=== PATIENT | female | born 2000 | race Caucasian/White ===

== ENCOUNTER 2021-09-04 16:41 | Emergency (ER) | payer MEDICAID, SELFPAY ==
[2021-09-04 16:42] VITALS: BP 102/74; PULSE 85; RESP 18; TEMP 36.5; O2SAT 97; BMI 24.7
--- NOTE | 2021-09-04 17:03 | EDS_ITS ---
HPI HPI - Female History of Present Illness Chief Complaint: Complaint Narrative Narrative: Patient presents with dysuria, frequency and urgency, she also complains of itchy slightly foul-smelling vaginal discharge. No fever or chills, she has slight pelvic pain. No nausea or vomiting. No back pain. No dyspareunia PFSH PFSH Medical History no medical history Home Medications metronidazole 500 mg PO BID #14 tab 09/04/21 [Rx Last Taken Unknown] Allergy/AdvReac Type Severity Reaction Status Date / Time No Known Allergies Allergy Verified 09/04/21 16:44 Social History Smoking Status: Never smoker ROS ROS ED ROS Narrative Past medical history: Reviewed Medications: Reviewed Social history: Noncontributory Review of systems: All systems negative except as indicated General: No fever Eyes: No visual changes ENT: No upper airway congestion, normal voice Neck: No neck pain Cardiovascular: No chest pain Respiratory: No shortness of breath or cough Gastrointestinal: No abdominal pain, nausea vomiting or diarrhea Genitourinary: As in HPI Musculoskeletal: Denies myalgias no difficulty with ambulation Skin: No rash Neurological: No memory loss, confusion or any focal weakness Psych: No recent behavioral changes Hematologic: No easy bleeding or easy bruising EXAM Physical Exam Narrative Exam Narrative: Physical exam General: Well nourished, Well developed, No Acute Distress Head: Normocephalic, Atraumatic Eyes: Conjunctiva not pale ENT: Moist mucous membranes Neck: Supple, Nontender, No lymphadenopathy Cardiovascular: Regular rate, Regular rhythm Respiratory: No distress, CTA bilaterally Abdomen: Soft, Nontender except for slight suprapubic pain, Nondistended : Deferred Back: Nontender, Normal Inspection. Negative for: CVA tenderness Extremities: Nontender, No edema Skin: Normal color, No rash Neurological: Alert, Normal Strength, Normal Sensation Psychological: Normal affect Const Vital Signs: 09/04/21 16:42 09/04/21 19:12 Temperature 97.7 F L Temperature Source Temporal Pulse Rate 85 Respiratory Rate 18 16 Blood Pressure 102/74 Blood Pressure Mean 83 Pulse Ox 97 Oxygen Delivery Method Room Air MDM MDM MDM Narrative Medical decision making narrative: Patient's urinalysis is grossly unremarkable, she appears well based on her symptoms she likely has bacterial vaginosis. I talked to her she does not want treated for GC or chlamydia at this time. She tells me she has no risk for these however I did culture so we will call her if these come back positive. Lab Data Labs: Laboratory Results - last 24 hr 09/04/21 17:16 Urine Color Yellow Urine Clarity Sl. Cloudy Urine pH 8.0 Ur Specific [place] 1.015 Urine Protein 30 H Urine Glucose (UA) Normal Urine Ketones 5 H Urine Occult Blood Negative Urine Nitrite Negative Urine Bilirubin Negative Urine Urobilinogen Normal Ur Leukocyte Esterase 25 H Urine RBC 0 SEEN Urine WBC 0 SEEN Ur Squamous Epith Cells 0-5 SEEN Urine Bacteria 1+ Urine Mucus 0 SEEN Urine Test Negative Radiography Diagnostic Testing: Clinical Impression(s) from Imaging Studies Transvaginal US 09/04/21 17:54 IMPRESSION: 1. Retroverted uterus, endometrium normal at 10 mm. No endometrial masses or fluid collections. 2. Normal appearance of the ovaries, RIGHT ovarian cyst is noted. No solid masses or abnormal blood flow. 3. Small amount of free fluid is present in the pelvis. Electronically Signed: Harpreet Thompson MD at 19:30 EST , Discharge Plan Triage Chief Complaint: Complaint ED Provider: Ki Vanegas Dx/Rx/DC Orders Clinical Impression: Bacterial vaginosis, Dysuria Instructions: Bacterial Vaginosis Prescriptions: New metronidazole 500 mg tablet 500 mg PO BID Qty: 14 RF: 0 Primary Care Provider: Sherly Roman NP Referrals: Sherly Roman NP, [employer] [Primary Care Provider] - 2 Days Disposition Disposition: Home, Self Care
[2021-09-04 17:28] LABS: Mucous, Urine 0 SEEN /hpf (<or=2+); Red Blood Cells-Urine 0 SEEN /hpf (0-5); White Blood Cells 0 SEEN /hpf (0-5)
[2021-09-04 17:30] LABS: Color, Urine Yellow (Yellow); Glucose, Dipstick Normal (Normal); Ketone-Dipstick 5 mg/dl (Negative); Leukocyte Esterase-Dipstick 25 /ul (Negative); Nitrite-Dipstick Negative (Negative); Occult Blood-Urine Negative /ul (Negative); Protein-Dipstick 30 mg/dl (Negative); Specific Gravity, Urine 1.015 (1.002-1.030); Urine Bilirubin Dipstick Negative (Negative); Urine Clarity Sl. Cloudy (Clear); Urine Urobilinogen Normal (Normal)
[2021-09-04 17:40] LABS: Bacteria 1+ /hpf (None Seen); Squamous Epithelial Cells - UA 0-5 SEEN /hpf (5-10)
[2021-09-04 17:42] LABS: Internal QC Validated? YES +Cl - CLEAR BKGD; Pregnancy, Urine Negative Negative
--- NOTE | 2021-09-04 17:54 | US_ITS ---
INDICATION: pelvic pain EXAMINATION: Ultrasound US Transvaginal Non-OB TECHNIQUE: Transvaginal (for optimal evaluation of the adnexa) pelvic ultrasound was performed. Grayscale, spectral waveform, and color flow Doppler evaluation of the adnexa. COMPARISON: None. FINDINGS: UTERUS: Retroverted. The uterus measures 6.3 x 5.1 x 3.9 cm. There is no uterine mass. The endometrial stripe measures 10 mm in AP diameter which is within normal limits. There is hyperechoic appearance to the mucosal surface however no abnormal fluid collections noted. RIGHT OVARY: 3.5 x 2.6 x 1.8 cm. Non-enlarged, normal echogenicity. There is normal arterial inflow and venous outflow present in the right ovary. There is a 1.4 x 1.4 x 1.1 cm cyst in the RIGHT ovary. LEFT OVARY: 2.9 x 2.0 x 1.9 cm. Non-enlarged, normal echogenicity. There is normal arterial inflow and venous outflow present in the left ovary. FREE FLUID: Small amount of free fluid is present in the cul-de-sac. US/Transvaginal Non- IMPRESSION: 1. Retroverted uterus, endometrium normal at 10 mm. No endometrial masses or fluid collections. 2. Normal appearance of the ovaries, RIGHT ovarian cyst is noted. No solid masses or abnormal blood flow. 3. Small amount of free fluid is present in the pelvis. Electronically Signed: Harpreet Thompson MD at 19:30 EST ,
[2021-09-04 19:12] VITALS: RESP 16
[2021-09-04] MEDS: metroNIDAZOLE 500 MG Tablet PO (20:00)
[2021-09-04 20:38] LABS: Chlamydia Trachomatis by PCR Negative (Negative); Neisserai gonorrhoeae by PCR Negative (Negative); Probe Check PASS; Sample Adequacy Control PASS; Specimen Processing Control PASS
== END 2021-09-04 20:02 | disposition home or self-care (01) ==
PROVIDERS: Emergency Provider Emergency Medicine; PCP Nurse Practitioner Primary Care; Visit Provider Emergency Medicine
DX: N76.0 Acute vaginitis (principal); B96.89 Other specified bacterial agents as the cause of diseases classified elsewhere; R30.0 Dysuria
CPT/HCPCS: 76830; 81001; 81025; 87491; 87591; 93976; 99283

== ENCOUNTER 2022-04-16 17:35 | Emergency (ER) | payer OTHER, BC, MEDICAID, SELFPAY ==
[2022-04-16 17:36] VITALS: BP 100/75; PULSE 85; RESP 14; TEMP 36.8; O2SAT 99; BMI 25.2
--- NOTE | 2022-04-16 18:09 | ED.VIS.FEGU ---
HPI <ISMA Meyer - Last Filed: 04/16/22 19:34> HPI - Female History of Present Illness Chief Complaint: Narrative Narrative: Patient is currently 11 weeks . She was walking about 2 miles after work when she developed bilateral lower abdominal cramping. No bleeding. She states pain is actually starting to subside now. She has had an uncomplicated first trimester so far. She states she had a 10-week ultrasound that confirmed IUP. The only medicine she is taking are prenatals and Lexapro. PFSH <ISMA Meyer - Last Filed: 04/16/22 19:34> [facility] Medical History (Updated 04/16/22 @ 19:30 by ISMA Meyer) Seizures Home Medications metronidazole 500 mg tablet 500 mg PO BID #14 tabs 09/04/21 [Rx Last Taken Unknown] cephalexin 500 mg capsule 500 mg PO Q8H 5 days #15 caps 04/16/22 [Rx Last Taken Unknown] escitalopram oxalate 5 mg tablet 5 mg PO DAILY 04/16/22 [History Last Taken Unknown] Allergy/AdvReac Type Severity Reaction Status Date / Time No Known Allergies Allergy Verified 04/16/22 17:36 Social History Smoking Status: Never smoker ROS <ISMA Meyer - Last Filed: 04/16/22 19:34> ROS ED ROS Narrative Constitutional: Negative for fever, chills, malaise. Eyes: Negative for visual change. ENT: Negative for sore throat, ear pain, rhinorrhea. CVS: Negative for palpitations, chest pain, syncope. Respiratory: Negative for shortness of breath, cough, orthopnea. GI: Positive for abdominal pain. Negative for nausea, vomiting, diarrhea, constipation, melena, hematochezia. : Negative for dysuria, hematuria or frequency. Neuro: Negative for headache, motor/sensory dysfunction. Skin: Negative for rash, abscess, or wound. Musc: Negative for joint pain, swelling, trauma. Heme: Negative for easy bruising, bleeding, lymphadenopathy. EXAM <ISMA Meyer - Last Filed: 04/16/22 19:34> Physical Exam Narrative Exam Narrative: CONST: Patient sitting in no acute distress. EYES: Normal inspection. NECK: Normal inspection. RESP: No respiratory distress, CTAB. CVS: Regular rate and rhythm, no murmur, no gallop. ABD: Soft with minimal bilateral lower abdominal tenderness, no guarding or rebound, nondistended. SKIN: Color normal, no rash, warm, dry, intact. EXTREMITIES: Normal appearance, no pedal edema. NEURO: Oriented x4. PSYCH: Normal affect. Const Vital Signs: 04/16/22 17:36 Temperature 98.2 F Temperature Source Temporal Pulse Rate 85 Respiratory Rate 14 Blood Pressure 100/75 Blood Pressure Mean 83 Pulse Ox 99 Oxygen Delivery Method Room Air <Dr. Vern Burns DO - Last Filed: 04/16/22 22:45> Physical Exam Const Vital Signs: 04/16/22 17:36 Temperature 98.2 F Temperature Source Temporal Pulse Rate 85 Respiratory Rate 14 Blood Pressure 100/75 Blood Pressure Mean 83 Pulse Ox 99 Oxygen Delivery Method Room Air MDM <ISMA Meyer - Last Filed: 04/16/22 19:34> [facility] Narrative Medical decision making narrative: Patient had mild bilateral lower abdominal pain after walking 2 miles. She is 11 weeks . She has no trauma no vaginal bleeding or abnormal discharge. Here she appears well and nontoxic. Vital signs are unremarkable. Her abdominal exam is benign and pain is resolved after Tylenol. heart tones were normal on bedside evaluation by the attending. UA had 1+ bacteria so I will treat with Keflex for asymptomatic bacteriuria. Patient advised to increase fluids and follow-up with her CHAIN CARRIER next week. She was discharged in stable condition. Attending note: Patient seen and evaluated with park maintenance technician. I perform my own [id number] evaluation. I agree with the plan of work-up. 11-day gestation followed by [facility], Sherly García. Walking 2 miles today for exercise noted cramping lower abdomen. No urine symptoms no vaginal bleeding no abnormal discharge denies trauma. Denies alcohol or any recreational drug use. Symptoms started on arrival to the ED. No other complaints. Exam abdomen soft nontender status post Tylenol. Bedside ultrasound performed by myself a lot of movement, cannot isolate heart for measurement. Urine is ordered symptoms improving patient more reassured. Plan for outpatient follow-up. Lab Data Labs: Laboratory Results - last 24 hr 04/16/22 18:50 Urine Color Yellow Urine Clarity Clear Urine pH 6.5 Ur Specific [place] 1.010 Urine Protein Negative Urine Glucose (UA) Normal Urine Ketones 50 H Urine Occult Blood Negative Urine Nitrite Negative Urine Bilirubin Negative Urine Urobilinogen Normal Ur Leukocyte Esterase Negative Urine RBC 0 SEEN Urine WBC 0-5 SEEN Ur Squamous Epith Cells 0-5 SEEN Urine Bacteria 1+ Urine Mucus 0 SEEN <Dr. Vern Burns DO - Last Filed: 04/16/22 22:45> MDM MDM Narrative Medical decision making narrative: Attending note: Patient seen and evaluated with park maintenance technician. I perform my own [id number] evaluation. I agree with the plan of work-up. 11-day gestation followed by [facility] OB, Sherly García. Walking 2 miles today for exercise noted cramping lower abdomen. No urine symptoms no vaginal bleeding no abnormal discharge denies trauma. Denies alcohol or any recreational drug use. Symptoms started on arrival to the ED. No other complaints. Exam abdomen soft nontender status post Tylenol. Bedside ultrasound performed by myself a lot of movement, cannot isolate heart for measurement. Urine is ordered symptoms improving patient more reassured. Plan for outpatient follow-up. Lab Data Labs: Laboratory Results - last 24 hr 04/16/22 18:50 Urine Color Yellow Urine Clarity Clear Urine pH 6.5 Ur Specific [place] 1.010 Urine Protein Negative Urine Glucose (UA) Normal Urine Ketones 50 H Urine Occult Blood Negative Urine Nitrite Negative Urine Bilirubin Negative Urine Urobilinogen Normal Ur Leukocyte Esterase Negative Urine RBC 0 SEEN Urine WBC 0-5 SEEN Ur Squamous Epith Cells 0-5 SEEN Urine Bacteria 1+ Urine Mucus 0 SEEN Discharge Plan Triage Chief Complaint: ED Midlevel Provider: Maria Guadalupe De Souza ED Provider: Vern Burns Dx/Rx/DC Orders Clinical Impression: Abdominal pain during , Asymptomatic bacteriuria Instructions: ED Abdominal Pain, Early Prescriptions: New cephalexin 500 mg capsule 500 mg PO Q8H 5 Days Qty: 15 0RF No Action metronidazole 500 mg tablet 500 mg PO BID Qty: 14 0RF escitalopram oxalate 5 mg tablet 5 mg PO DAILY Primary Care Provider: Sherly Roman NP Referrals: Sherly Roman DIGITAL MARKETING STRATEGIST, DIGITAL MARKETING STRATEGIST-C [Primary Care Provider] - Activity Restrictions/Additional Instructions: You had normal heart tones here. Your urine had a small amount of bacteria in we treat this with antibiotics to prevent risk of infection to the fetus. Please take these, drink plenty of fluids, and call your CHAIN CARRIER next week for follow-up. Disposition Disposition: Home, Self Care Discharge Date/Time: 04/16/22 19:38
[2022-04-16] MEDS: Acetaminophen 325 MG Tablet 650 MG PO (18:16)
[2022-04-16 18:57] LABS: Mucous, Urine 0 SEEN /hpf (<or=2+); Red Blood Cells-Urine 0 SEEN /hpf (0-5)
[2022-04-16 19:05] LABS: Color, Urine Yellow (Yellow); Glucose, Dipstick Normal (Normal); Ketone-Dipstick 50 mg/dl (Negative); Leukocyte Esterase-Dipstick Negative /ul (Negative); Nitrite-Dipstick Negative (Negative); Occult Blood-Urine Negative /ul (Negative); Protein-Dipstick Negative (Negative); Urine Bilirubin Dipstick Negative (Negative); Urine Clarity Clear (Clear); Urine Urobilinogen Normal (Normal); Urine pH 6.5 (5.0 - 8.0)
[2022-04-16 19:26] LABS: Bacteria 1+ /hpf (None Seen); Squamous Epithelial Cells - UA 0-5 SEEN /hpf (5-10)
[2022-04-16 19:28] LABS: White Blood Cells 0-5 SEEN /hpf (0-5)
== END 2022-04-16 19:38 | disposition home or self-care (01) ==
PROVIDERS: Physician Assistant; Emergency Provider Emergency Medicine; PCP Nurse Practitioner Primary Care; Visit Provider Emergency Medicine
DX: O26.891 Other specified pregnancy related conditions, first trimester (principal); R82.71 Bacteriuria; Z3A.11 11 weeks gestation of pregnancy; R10.9 Unspecified abdominal pain
CPT/HCPCS: 81001; 99283

== ENCOUNTER 2022-06-11 10:50 | Emergency (ER) | payer OTHER, BC, MEDICAID, SELFPAY ==
[2022-06-11 10:51] VITALS: BP 105/85; PULSE 102; RESP 14; TEMP 36.6; O2SAT 100; BMI 25.9
--- NOTE | 2022-06-11 11:47 | ED.VIS.GI ---
HPI HPI - GI History of Present Illness Chief Complaint: Nausea/Vomiting Narrative Narrative: 22-year-old female presenting with nausea and vomiting since yesterday. She states she is currently not nauseous.. She was diagnosed with COVID yesterday. She states that she vomited some pink looking vomit yesterday. She states she has been eating mostly bread and water. She is able to hold some of this down. She has a picture of it and it does look like vomited bread. She denies abdominal pain. She does have a fever. No urinary symptoms. She states that he did speak with her OB and they changed her appointment, but did not give her anything for nausea. Patient reports that she has some mild rhinorrhea and a mild cough but is not short of breath or have any chest pain. PFSH PFS Medical History Depression Seizures Home Medications escitalopram oxalate 5 mg tablet 5 mg PO DAILY 04/16/22 [History Last Taken Unknown] ondansetron 4 mg disintegrating tablet 4 mg PO Q8H PRN nausea and vomiting #14 tabs 06/11/22 [Rx Last Taken Unknown] [id number] 1 mg tablet 1 tab PO DAILY 06/11/22 [History Last Taken Unknown] Allergy/AdvReac Type Severity Reaction Status Date / Time No Known Allergies Allergy Verified 06/11/22 10:51 Social History Smoking Status: Never smoker ROS ROS ED Constitutional Constitutional ED: Denies chills or fever(s) ENT ENT ED: Denies rhinorrhea or sore throat Cardiovascular Cardiovascular: Denies chest pain or palpitations Respiratory/Chest Respiratory/Chest: Reports cough; Denies dyspnea or dyspnea on exertion Gastrointestinal Gastrointestinal: Reports nausea and vomiting; Denies abdominal pain Genitourinary Genitourinary ED: Denies dysuria or hematuria Musculoskeletal Musculoskeletal: Denies arthralgias or back pain Integumentary Denies abscess or Abrasions Neurologic Neurologic: Denies headache(s) or paresthesias Psychiatric Psychiatric: Denies anxiety or depression Endocrine Endocrinology: Denies polydipsia or polyphagia EXAM Physical Exam Const Vital Signs: 06/11/22 10:51 Temperature 98 F Temperature Source Temporal Pulse Rate 102 H Respiratory Rate 14 Blood Pressure 105/85 H Blood Pressure Mean 91 Pulse Ox 100 Oxygen Delivery Method Room Air Positive well nourished General Appearance ED: NAD; Negative for pallor HEENT Reports moist mucous membranes normocephalic Eyes PERRL and EOMs intact bilaterally Resp normal respiratory effort and clear to auscultation bilaterally Auscultation: Negative for rales, rhonchi or wheezes Cardio regular rate and regular rhythm GI non-tender Neuro CN's II-XII intact bilaterally and moves all extremities Sensorium / Orientation: alert and oriented to person Psych mental status grossly normal Skin no wounds General Skin Exam: Negative for jaundice or pallor MDM MDM MDM Narrative Medical decision making narrative: Patient presenting with nausea and vomiting from yesterday. Today she feels a little bit better. She was given Zofran in the ER. Although she is diagnosed with COVID starting yesterday she does not have any shortness of breath. She is not have any chest pain or abdominal pain. She has a mild cough and rhinorrhea. Urinalysis today negative for infection. No urine ketones noted. I do not believe the patient needs needs a chest x-ray or blood work. Discussed with patient and she agrees. Patient given prescription for Zofran for home. She is to follow-up with OB. Impression: 1. COVID-19 2. Nausea Lab Data Attestation: I reviewed the patient's lab results. Labs: Laboratory Results - last 24 hr 06/11/22 11:56 Urine Color Yellow Urine Clarity Clear Urine pH 6.0 Ur Specific [place] 1.010 Urine Protein Negative Urine Glucose (UA) Normal Urine Ketones Negative Urine Occult Blood Negative Urine Nitrite Negative Urine Bilirubin Negative Urine Urobilinogen Normal Ur Leukocyte Esterase Negative Ur Squamous Epith Cells 0-5 SEEN Urine Bacteria RARE Discharge Plan Triage Chief Complaint: Nausea/Vomiting ED Provider: Xavi Savage Dx/Rx/DC Orders Instructions: Coronavirus Disease 2019 (COVID-19): Caring for Yourself or Others, ED Vomiting (Adult) Prescriptions: New ondansetron 4 mg tablet,disintegrating 4 mg PO Q8H PRN (Reason: nausea and vomiting) Qty: 14 0RF No Action escitalopram oxalate 5 mg tablet 5 mg PO DAILY 1 mg Tablet 1 tab PO DAILY Primary Care Provider: Sherly Roman NP Referrals: Sherly Roman NP, [employer] DRILLING MACHINE OPERATOR-C [Primary Care Provider] - Disposition Disposition: Home, Self Care
[2022-06-11] MEDS: Ondansetron ODT 4 MG Tablet PO (11:54)
[2022-06-11 12:02] LABS: Color, Urine Yellow (Yellow); Glucose, Dipstick Normal (Normal); Ketone-Dipstick Negative (Negative); Leukocyte Esterase-Dipstick Negative /ul (Negative); Mucous, Urine 0 SEEN /hpf (<or=2+); Nitrite-Dipstick Negative (Negative); Occult Blood-Urine Negative /ul (Negative); Protein-Dipstick Negative (Negative); Red Blood Cells-Urine 0 SEEN /hpf (0-5); Urine Bilirubin Dipstick Negative (Negative); Urine Clarity Clear (Clear); Urine Urobilinogen Normal (Normal); White Blood Cells 0 SEEN /hpf (0-5)
[2022-06-11 12:10] LABS: Bacteria RARE /hpf (None Seen); Squamous Epithelial Cells - UA 0-5 SEEN /hpf (5-10)
[2022-06-11 14:25] VITALS: BP 98/68; PULSE 86; RESP 14; O2SAT 100
== END 2022-06-11 14:26 | disposition home or self-care (01) ==
PROVIDERS: Emergency Provider Student in an Organized Health Care Education/Training Program; PCP Nurse Practitioner Primary Care; Visit Provider Student in an Organized Health Care Education/Training Program
DX: U07.1 COVID-19 (principal); R11.2 Nausea with vomiting, unspecified; R50.9 Fever, unspecified
CPT/HCPCS: 81001; 99283

== ENCOUNTER 2022-08-11 13:25 | Outpatient (CLI) | payer OTHER, BC, MEDICAID, SELFPAY ==
[2022-08-11 13:36] VITALS: BMI 29.0
[2022-08-11 13:40] VITALS: BP 112/69; PULSE 94; TEMP 36.8
--- NOTE | 2022-08-11 13:56 | US_ITS ---
STUDY: SECOND AND THIRD TRIMESTER OBSTETRICAL ULTRASOUND - LIMITED REASON FOR EXAM: Female, 22 years old bleeding LMP: 01/25/2022 PRIOR ULTRASOUND: None. TECHNIQUE: Transabdominal and Transvaginal TECHNICAL QUALITY: Adequate. FINDINGS: There is a single intrauterine fetus. The fetus is in a cephalic presentation. There is demonstrated cardiac activity with a heart rate of 140 bpm. There is a normal amniotic fluid volume. The largest amniotic fluid pocket measures 5.1 cm. The amniotic fluid index (PIETER) is 15.3 cm. The placenta is anterior in location and is not low lying. There are Grade 1 placental changes. The cervix measures 3.1 cm in length. BIOMETRY: Age by LMP: 28 weeks, 2 days. MATEUSZ by LMP: 11/01/2022. US/OB Limited (No Biometrics) IMPRESSION: Live intrauterine gestation. Electronically Signed: Joao Carter MD at 15:09 EST ,
[2022-08-11 14:25] LABS: Hematocrit 29.3 % (37-47); Hemoglobin 9.5 g/dL (12.0-15.0); Mean Corp Hgb Conc 32.4 g/dL (32-36); Mean Corpuscular Hgb 27.2 pg (27.0-32.0); Mean Platelet Vol. 10.2 fl (6.2-12.0); Platelet Count 201 K/mm3 (150-450); RBC Distribution Width CV 14.1 % (11.6-14.6); Red Blood Count 3.49 M/mm3 (4.2-5.4); White Blood Count 11.8 K/mm3 (4.4-11.0)
[2022-08-11 14:33] LABS: Partial Thromboplast Time 25.4 Seconds (24.1-36.2)
[2022-08-11 14:34] LABS: Fibrinogen 357 mg/dl (203-444)
--- NOTE | 2022-08-11 15:22 | NURSING ---
pt and fob going straight over to [facility] office for Dr Horowitz to exam her. pt feels comfortable leaving [facility] to go to [facility].
--- NOTE | 2022-08-12 10:24 | OB.TRI.NOTE ---
HPI - General General Date of Admission: 08/11/22 Date of Service: 08/11/22 HPI Narrative MAXINE SANTOS, is a 22 F who presents c/o vaginal bleeding after intercourse PFSH PFSH Medical History Depression Seizures Home Medications escitalopram oxalate 5 mg tablet 5 mg PO DAILY 04/16/22 [History Last Taken 08/11/22 08:00] ondansetron 4 mg disintegrating tablet 4 mg PO Q8H PRN nausea and vomiting #14 tabs 06/11/22 [Rx Last Taken Unknown] [id number] 1 mg tablet 1 tab PO DAILY 06/11/22 [History Last Taken 08/11/22 08:00] Allergy/AdvReac Type Severity Reaction Status Date / Time No Known Allergies Allergy Verified 08/11/22 14:21 Social History Smoking Status: Never smoker NST FHR Rate Baby A Baseline: normal Variability:: Moderate Accelerations:: 10 x 10 Decelerations:: None NST Reactive:: Appropriate for gestational age FHR Category:: Category I Uterine Activity:: no regular ctxs Assessment & Plan (1) 28 weeks gestation of : PLAN: Ultrasound and labs are sharing. Patient was discharged to my office for an in office visit. Of note in the office it was determined that the bleeding was coming from the hymenal ring and not from the cervix or uterus. Patient was discharged home from my office with routine follow-up. Blood type is AB+. (2) Vaginal bleeding during :
== END 2022-08-11 15:24 | disposition home or self-care (01) ==
LOC: WPOUT 13:31 → WP 13:31
PROVIDERS: PCP Nurse Practitioner Primary Care; Referring Provider Obstetrics & Gynecology; Visit Provider Obstetrics & Gynecology
DX: O46.93 Antepartum hemorrhage, unspecified, third trimester (principal); O99.343 Other mental disorders complicating pregnancy, third trimester; F32.9 Major depressive disorder, single episode, unspecified; Z3A.28 28 weeks gestation of pregnancy
CPT/HCPCS: 36415; 59025; 59050; 76815; 85027; 85384; 85610; 85730; 99221; G0378

== ENCOUNTER 2022-10-11 16:40 | Outpatient (CLI) | payer OTHER, BC, MEDICAID, SELFPAY ==
[2022-10-11 16:46] VITALS: BP 109/70; PULSE 111
[2022-10-11 16:47] VITALS: TEMP 36.8
[2022-10-11 16:54] VITALS: BMI 30.2
[2022-10-11] MEDS: DiphenhydrAMINE 50 MG/ML Syringe 25 MG IV (18:06)
[2022-10-11 18:41] VITALS: BP 118/72; PULSE 83; TEMP 36.9
--- NOTE | 2022-10-15 10:02 | OB.TRI.NOTE ---
HPI - General General Date of Admission: 10/11/22 Date of Service: 10/11/22 HPI Narrative MAXINE SANTOS, is a 22 F who presents Maternal Data Information Final MATEUSZ: 11/01/22 Gestational age: 374 0/7 PFSH PFSH Medical History Depression Seizures Home Medications escitalopram oxalate 5 mg tablet 5 mg PO DAILY 04/16/22 [History Last Taken 10/10/22] ondansetron 4 mg disintegrating tablet 4 mg PO Q8H PRN nausea and vomiting #14 tabs 06/11/22 [Rx Last Taken Unknown] [id number] 1 mg tablet 1 tab PO DAILY 06/11/22 [History Last Taken 10/11/22] Allergy/AdvReac Type Severity Reaction Status Date / Time No Known Allergies Allergy Verified 08/11/22 14:21 Social History Smoking Status: Never smoker NST FHR Rate Baby A Baseline: 120 Variability:: Minimal (at times) and Moderate Accelerations:: 15 x 15 Decelerations:: None NST Reactive:: Yes FHR Category:: Category I Uterine Activity:: irreg ctxs Assessment & Plan (1) 37 weeks gestation of : PLAN: Decreased movement. Nonstress test is reactive. Patient felt movement. [place] parous patient at 37 weeks gestation. Discharged home with routine follow-up and instructions. Return as needed.
== END 2022-10-11 18:30 | disposition home or self-care (01) ==
LOC: WPOUT 16:42 → WP 16:42
PROVIDERS: PCP Nurse Practitioner Primary Care; Referring Provider Advanced Practice Midwife; Visit Provider Advanced Practice Midwife
DX: O36.8130 Decreased fetal movements, third trimester, not applicable or unspecified (principal); Z3A.37 37 weeks gestation of pregnancy
CPT/HCPCS: 96365; 96375; 59025; 59050; 86850; 86900; 86901; J1756

== ENCOUNTER → 2022-10-19 | Outpatient (CLI) | payer OTHER, BC, MEDICAID, SELFPAY ==
[2022-10-19] MEDS: 0.9% NaCl Peripheral Flush Adult/Peds IV (13:11)
[2022-10-19] MEDS: 0.9% NaCl IVPB Med Flush (250 mL) 15 ML IV (13:11)
[2022-10-19 13:15] VITALS: BP 103/71; PULSE 87; RESP 14; TEMP 36.1; O2SAT 96; BMI 29.2
[2022-10-19 14:17] VITALS: BP 105/66; PULSE 82; RESP 16
== END | disposition home or self-care (01) ==
PROVIDERS: PCP Nurse Practitioner Primary Care; Referring Provider Advanced Practice Midwife; Visit Provider Advanced Practice Midwife
DX: O99.013 Anemia complicating pregnancy, third trimester (principal); D50.9 Iron deficiency anemia, unspecified; O99.613 Diseases of the digestive system complicating pregnancy, third trimester; K90.9 Intestinal malabsorption, unspecified; Z3A.37 37 weeks gestation of pregnancy
CPT/HCPCS: 96365; J1756; J7050; A4216

== ENCOUNTER 2022-10-20 22:35 | Outpatient (CLI) | payer OTHER, BC, MEDICAID, SELFPAY ==
[2022-10-20 22:58] VITALS: O2SAT 99
[2022-10-20 22:59] VITALS: BP 108/75; PULSE 85
[2022-10-20 23:18] VITALS: BMI 31.8
--- NOTE | 2022-10-21 06:29 | OB.TRI.NOTE ---
HPI - General HPI Narrative MAXINE SANTOS, is a 22 F at 38.2 weeks who presents to triage with contractions. She had intercourse earlier this evening and begin cramping. She denies any loss of fluid or vaginal bleeding. Positive movement. Maternal Data Information MATEUSZ Calculator Estimated Delivery Date Method Current WG Current Estimate 11/01/22 Manual 38w 3d PFSH PFS Medical History Depression Seizures Home Medications escitalopram oxalate 5 mg tablet 5 mg PO DAILY 04/16/22 [History Last Taken 10/20/22 08:00] Allergy/AdvReac Type Severity Reaction Status Date / Time No Known Allergies Allergy Verified 10/20/22 23:19 Social History Smoking Status: Never smoker ROS Eyes Eyes: Denies blurry vision Cardiovascular Cardiovascular: Reports none; Denies chest pain at rest, chest pain with activity or dizziness Respiratory/Chest Respiratory/Chest: Denies cough or dyspnea Gastrointestinal Gastrointestinal: Reports none and other; Denies diarrhea or vomiting Genitourinary Genitourinary: Denies dysuria Musculoskeletal Musculoskeletal: Reports none Integumentary Integumentary: Reports none; Denies rash Neurologic Neurologic: Denies dizziness, headache(s) or other visual disturbances Psychiatric Psychiatric: Reports none Physical Exam Const alert and no apparent distress General Appearance: cooperative Orientation / Consciousness: awake Exam Limitations: no limitations HEENT normocephalic Eyes General Eye: normal appearance of both eyes Neck full ROM Chest inspection of chest normal Resp normal respiratory effort and normal air movement Effort and Inspection: symmetric chest movement Auscultation: clear to auscultation bilaterally Cardio regular rate GI soft to palpation, non-tender and non-distended Inspection: and other Back/Spine normal ROM Extremity full ROM, normal capillary refill and no calf tenderness Skin no rashes or lesions noted Neuro oriented x3 and CN's II-XII intact bilaterally Psych mental status grossly normal NST FHR Rate Baby A Baseline: 120 Variability:: Moderate Accelerations:: 15 x 15 Decelerations:: None NST Reactive:: Yes FHR Category:: Category I Uterine Activity:: irregular Assessment & Plan (1) 38 weeks gestation of : (2) Uterine contractions: PLAN: Plan NST reactive CE- 1.5/60/-3- unchanged D/C home with follow up in office patient agrees with plan of care
== END 2022-10-21 02:00 | disposition home or self-care (01) ==
LOC: WPOUT 22:42 → WP 22:43
PROVIDERS: PCP Nurse Practitioner Primary Care; Visit Provider Advanced Practice Midwife
DX: O47.1 False labor at or after 37 completed weeks of gestation (principal); Z3A.38 38 weeks gestation of pregnancy
CPT/HCPCS: 59025; 59050; 99221; G0378

== ENCOUNTER → 2022-10-22 | Outpatient (CLI) | payer OTHER, BC, MEDICAID, SELFPAY ==
[2022-10-22 09:20] VITALS: BP 105/82; PULSE 83; RESP 16; TEMP 35.9; O2SAT 96; BMI 32.1
[2022-10-22] MEDS: 0.9% NaCl IVPB Med Flush (250 mL) 15 ML IV (09:28)
[2022-10-22] MEDS: 0.9% NaCl Peripheral Flush Adult/Peds IV (09:28)
[2022-10-22 10:25] VITALS: BP 97/67; PULSE 80; RESP 16; O2SAT 96
== END | disposition home or self-care (01) ==
PROVIDERS: PCP Nurse Practitioner Primary Care; Referring Provider Advanced Practice Midwife; Visit Provider Advanced Practice Midwife
DX: O99.013 Anemia complicating pregnancy, third trimester (principal); D50.9 Iron deficiency anemia, unspecified; O99.613 Diseases of the digestive system complicating pregnancy, third trimester; K90.9 Intestinal malabsorption, unspecified; Z3A.37 37 weeks gestation of pregnancy
CPT/HCPCS: 96365; J1756; J7050; A4216

== ENCOUNTER 2022-10-23 18:30 | Outpatient (CLI) | payer OTHER, BC, MEDICAID, SELFPAY ==
[2022-10-23 18:54] VITALS: BMI 32.5
[2022-10-23 19:18] VITALS: BP 107/70; PULSE 90; TEMP 36.4
[2022-10-23 19:30] LABS: ROM Internal Control Test YES-OK TO RESULT pt. (Internal QC)
[2022-10-23 19:31] LABS: ROM Patient Test Negative (Negative)
--- NOTE | 2022-10-26 12:08 | OB.TRI.NOTE ---
HPI - General General Date of Service: 10/23/22 HPI Narrative MAXINE SANTOS, is a 22 F who presents for possible LOF. Maternal Data Information MATEUSZ Calculator Estimated Delivery Date Method Current WG Current Estimate 11/01/22 Manual 39w 1d Final MATEUSZ: 11/01/22 Gestational age: 38&5 PFSH PFSH Medical History Depression Seizures Home Medications escitalopram oxalate 5 mg tablet 5 mg PO DAILY seizures 04/16/22 [History Last Taken 10/22/22 06:00] Allergy/AdvReac Type Severity Reaction Status Date / Time No Known Allergies Allergy Verified 10/22/22 09:20 Social History Smoking Status: Never smoker NST FHR Rate Baby A Baseline: 130 Variability:: Moderate Accelerations:: 15 x 15 Decelerations:: None NST Reactive:: Yes Uterine Activity:: Irregular Assessment & Plan (1) False labor: PLAN: Plan reactive NST
== END 2022-10-23 19:59 | disposition home or self-care (01) ==
LOC: WPOUT 18:42 → WP 18:42
PROVIDERS: PCP Nurse Practitioner Primary Care; Visit Provider Obstetrics & Gynecology
DX: O47.9 False labor, unspecified (principal); Z3A.00 Weeks of gestation of pregnancy not specified
CPT/HCPCS: 59025; 59050; 84112; 99221; G0378

== ENCOUNTER 2022-10-28 07:49 | Outpatient (CLI) | payer OTHER, BC, MEDICAID, SELFPAY ==
[2022-10-28 08:04] VITALS: BP 106/67; PULSE 85; RESP 16; TEMP 36.7; O2SAT 99; BMI 32.1
[2022-10-28] MEDS: 0.9% NaCl IVPB Med Flush (250 mL) 15 ML IV (08:23)
[2022-10-28 09:18] VITALS: BP 107/63; PULSE 77; TEMP 36.6
== END 2022-10-28 07:50 | disposition home or self-care (01) ==
PROVIDERS: PCP Nurse Practitioner Primary Care; Referring Provider Advanced Practice Midwife; Visit Provider Advanced Practice Midwife
DX: O99.013 Anemia complicating pregnancy, third trimester (principal); D50.9 Iron deficiency anemia, unspecified; O99.613 Diseases of the digestive system complicating pregnancy, third trimester; K90.9 Intestinal malabsorption, unspecified; Z3A.37 37 weeks gestation of pregnancy
CPT/HCPCS: 96365; J1756; J7050; A4216

== ENCOUNTER 2022-10-29 06:55 | Inpatient (IN) | payer OTHER, BC, MEDICAID, SELFPAY ==
[2022-10-29] VITALS (52 sets, daily range): BP systolic 63–118; BP diastolic 36–76; PULSE 74–115; TEMP 36.1–37.3; O2SAT 96–100; BMI 32.1
[2022-10-29] MEDS: Lactated Ringers 1,000 ML 50 ML IV (07:34)
[2022-10-29] MEDS: Oxytocin 15 Units/NS 250ml 15 UNITS/250 ML IV.SOLN 2 UNITS IV (07:52)
[2022-10-29 07:56] LABS: Absolute Lymphocyte Count 2.08 X10^3/uL (0.83-4.51); Absolute Neutrophil Count 6.1 X10^3/uL (2.0-7.7); Basophil# 0.03 X10^3/uL; Basophil% 0.3 % (0-1); Eosinophil# 0.08 X10^3/uL; Eosinophils% 0.9 % (0-5); Hematocrit 33.3 % (37-47); Hemoglobin 10.3 g/dL (12.0-15.0); Lymphocyte # 2.08 X10^3/ul (0.83-4.51); Lymphocyte % 22.8 % (19-41); Mean Corp Hgb Conc 30.9 g/dL (32-36); Mean Corpuscular Hgb 25.5 pg (27.0-32.0); Mean Corpuscular Volume 82.4 fL (81-99); Mean Platelet Vol. 10.4 fl (6.2-12.0); Monocyte# 0.63 X10^3/uL; Monocyte% 6.9 % (0-10); NRBC Flagged by Analyzer 0.4 % (0-5); Neutrophil # 6.09 X10^3/uL (2.7-7.7); Neutrophil % 66.8 % (47-70); POSITIVE MORPHOLOGY YES; Platelet Count 218 K/mm3 (150-450); RBC Distribution Width CV 21.3 % (11.6-14.6); RBC Distribution Width SD 61.1 fl (35.1-43.9); Red Blood Count 4.04 M/mm3 (4.2-5.4); White Blood Count 9.1 K/mm3 (4.4-11.0)
[2022-10-29 08:01] LABS: Differential Indicated SCAN CRITERIA MET
[2022-10-29 08:29] LABS: Syphilis Antibodies Non-reactive
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
[2022-10-29 08:43] LABS: Anisocytosis 1+
[2022-10-29 09:47] LABS: Amphetamine Urine VISTA NEGATIVE (<1000 ng/mL); Barbiturate Urine VISTA NEGATIVE (< 200 ng/mL); Benzodiazepine Urine VISTA NEGATIVE (< 200 ng/mL); Cocaine Urine VISTA NEGATIVE (< 300 ng/mL); Ecstacy Urine VISTA NEGATIVE (< 500 ng/mL); Methadone Urine VISTA NEGATIVE (< 300 ng/mL); PCP Urine VISTA NEGATIVE (< 25 ng/mL); THC Urine VISTA NEGATIVE (< 50 ng/mL); Vista UDS pH Range 6
[2022-10-29] MEDS: LACTATED RINGERS 500 ML 999 ML IV ×3 (10:30→14:30)
[2022-10-29] MEDS: fentaNYL-bupivacaine (epidural) 100 ML BAG EPIDURAL ×2 (11:28→17:03)
--- NOTE | 2022-10-29 12:17 | PCM.PN.OB ---
Subjective Subjective Comfortable with epidural. Partner at bedside Objective Data Objective Data 5cm/70%/-1. AROM for large amount of clear fluid. Vital Signs: Vital Signs Temp Pulse BP Pulse Ox 98.6 F 90 107/64 97 10/29/22 11:27 10/29/22 12:03 10/29/22 11:52 10/29/22 12:03 Weight: 170 lb Body Mass Index (BMI) 32.1 Intake & Output: Intake and Output for Last 24 Hours 10/27/22 10/28/22 10/29/22 23:59 23:59 23:59 Intake Total 661.70 / 661.70 Balance 661.70 / 661.70 Lab / Micro Data Result Diagrams: 10/29/22 07:45 Labs: Laboratory Results - last 24 hr 10/29/22 07:45: WBC 9.1, RBC 4.04 L, Hgb 10.3 L, Hct 33.3 L, MCV 82.4, MCH 25.5 L, MCHC 30.9 L, RDW Std Deviation 61.1 H, RDW Coeff of Evy 21.3 H, Plt Count 218, MPV 10.4, Immature Gran % (Auto) 2.300 H, Neut % (Auto) 66.8, Lymph % (Auto) 22.8, [place] % (Auto) 6.9, Eos % (Auto) 0.9, Baso % (Auto) 0.3, Absolute Neuts (auto) 6.1, Absolute Lymphs (auto) 2.08, Nucleated RBC % 0.4, Anisocytosis 1+ 10/29/22 07:45: Blood Type AB POSITIVE, Antibody Screen NEGATIVE 10/29/22 07:45: Syphilis Total Ab Non-reactive 10/29/22 09:20: Urine Opiates Screen NEGATIVE, Urine Methadone Screen NEGATIVE, Ur Barbiturates Screen NEGATIVE, Ur Phencyclidine Scrn NEGATIVE, Ur Amphetamines Screen NEGATIVE, MDMA (Ecstasy) Screen NEGATIVE, U Benzodiazepines Scrn NEGATIVE, Urine Cocaine Screen NEGATIVE, U Cannabinoids Screen NEGATIVE, Ur Drug Screen Comment NST FHR Rate Baby A Baseline: 125 Variability:: Moderate Accelerations:: 15 x 15 Decelerations:: None FHR Category:: Category I Uterine Activity:: every 2-3 moderate to strong Assessment & Plan (1) Encounter for induction of labor: PLAN: Plan 1) Comfortable with epidural 2) Continue pitocin per protocol 3) Positional changes 4) AROM 5) updated on patient status.
[2022-10-29] MEDS: Lactated Ringers 1,000 ML 200 ML IV (16:17)
[2022-10-29] MEDS: Ondansetron 4 MG/2 ML Vial IV (17:59)
--- NOTE | 2022-10-29 23:48 | OP.PCM_ITS ---
Assessment & Plan (1) Vaginal delivery: (2) Second degree perineal laceration: Maternal Data Information MATEUSZ Calculator Estimated Delivery Date Method Current WG Current Estimate 11/01/22 Manual 39w 4d Vaginal Delivery Maternal Presentation Maternal Presentation: Elective Induction Type of Induction: Pitocin Operative Information Date of Procedure: 10/29/22 Pre-Operative Diagnosis: Induction of Labor Post-Operative Diagnosis: , 2nd degree laceration Surgery / Procedure Performed: Spontaneous Vaginal Delivery Type of Anesthesia: Epidural Estimated Blood Loss: 500 ml Time of Delivery: 23:13 Findings Description of Procedure: Progressed to complete with urge to push. Epidural for pain management. of viable female infant over 2nd degree perineal laceration. APGARS 8,9 respectively. Infant head delivered with body immediately forthcoming. Placed on maternal abdomen, strong cry. Mouth and nares suctioned for secretions. Pitocin started for active 3rd stage management. Cord doubly clamped and cut by FOB after pulsations ceased, delayed cord clamping. Placenta delivered intact via nicolás, 3 vessel cord intact. Perineum inspected and revealed 2nd degree perineal laceration. Repaired with 3.0 vicryl rapide and epidural analgesia. Fundus firm and hemostasis achieved. EBL 500ml. Mom and baby stable, planning to breastfeed. Taken to infant warmer due to dusky color. Blow by 02 and then CPAP due to decreased sp)2, social problems specialist called to room for evaluation. Sp02 returned to normal and returned to mother skin to skin Family bonding well. Dr. Garcia notified of delivery. Presentation: Vertex and KACEY Amniotic Membrane Rupture Type: Artificial Amniotic Fluid Description: Clear and - (terminal meconium ) Placental Delivery Description: Spontaneous Placenta Disposition: [facility] Cord Vessel Description: 3 Vessels Cord Entanglement: None Infant A Gender: Female (1 minute): 8 (5 minute): 9 Delayed Cord Clamping: Yes Post Vaginal Delivery Medications Given After Delivery: IV Pitocin Episiotomy Description: None Laceration: Perineal Extension/lac and 2nd degree Complication Complications: None
[2022-10-29] MEDS: Oxytocin 15 Units/NS 250ml 15 UNITS/250 ML IV.SOLN 83 UNITS IV (23:55)
[2022-10-30] VITALS (19 sets, daily range): BP systolic 98–118; BP diastolic 55–72; PULSE 80–93; RESP 15–16; TEMP 36.3–37.5; O2SAT 96–100
[2022-10-30] MEDS: Acetaminophen 500 MG Tablet 1000 MG PO ×2 (01:40→15:39)
[2022-10-30] MEDS: 0.9% Saline Lock 10 ML Syringe IV (02:54)
--- NOTE | 2022-10-30 04:45 | PCM.PN.OB ---
Subjective Subjective Doing well per patient and nursing staff. Ambulating and taking PO without difficulty. Voiding and passing flatus. Pain controlled. , services for assistance. Denies headache, visual changes, chest pain, shortness of breath, leg pain or increased bleeding. Lochia normal. Objective Data Objective Data Vital Signs: Vital Signs Temp Pulse BP Pulse Ox 99.5 F H 90 115/65 99 10/30/22 01:21 10/30/22 01:24 10/30/22 01:22 10/30/22 01:24 Weight: 170 lb Body Mass Index (BMI) 32.1 Intake & Output: Intake and Output for Last 24 Hours 10/28/22 10/29/22 10/30/22 23:59 23:59 23:59 Intake Total 3720.01 / 3720.01 247.62 / 247.62 Output Total 600 / 600 500 / 500 Balance 3120.01 / 3120.01 -252.38 / -252.38 Lab / Micro Data Result Diagrams: 10/30/22 11:10 Labs: Laboratory Results - last 24 hr 10/29/22 07:45: WBC 9.1, RBC 4.04 L, Hgb 10.3 L, Hct 33.3 L, MCV 82.4, MCH 25.5 L, MCHC 30.9 L, RDW Std Deviation 61.1 H, RDW Coeff of Evy 21.3 H, Plt Count 218, MPV 10.4, Immature Gran % (Auto) 2.300 H, Neut % (Auto) 66.8, Lymph % (Auto) 22.8, [place] % (Auto) 6.9, Eos % (Auto) 0.9, Baso % (Auto) 0.3, Absolute Neuts (auto) 6.1, Absolute Lymphs (auto) 2.08, Nucleated RBC % 0.4, Anisocytosis 1+ 10/29/22 07:45: Blood Type AB POSITIVE, Antibody Screen NEGATIVE 10/29/22 07:45: Syphilis Total Ab Non-reactive 10/29/22 09:20: Urine Opiates Screen NEGATIVE, Urine Methadone Screen NEGATIVE, Ur Barbiturates Screen NEGATIVE, Ur Phencyclidine Scrn NEGATIVE, Ur Amphetamines Screen NEGATIVE, MDMA (Ecstasy) Screen NEGATIVE, U Benzodiazepines Scrn NEGATIVE, Urine Cocaine Screen NEGATIVE, U Cannabinoids Screen NEGATIVE, Ur Drug Screen Comment ROS Constitutional Constitutional: Reports systems reviewed and no addt'l complaints, except as documented; Denies headache(s) Eyes Eyes: Denies acute decrease in peripheral vision, blurry vision or change in vision ENT HEENT: Reports systems reviewed and no addt'l complaints, except as documented Cardiovascular Cardiovascular: Denies chest pain or dizziness Respiratory/Chest Respiratory/Chest: Denies cough, dyspnea, dyspnea on exertion, shortness of breath at rest or shortness of breath with exertion Gastrointestinal Gastrointestinal: Denies abdominal pain, diarrhea, nausea or vomiting Genitourinary Genitourinary: Denies abdominal discomfort Musculoskeletal Musculoskeletal: Denies limited range of motion Integumentary Integumentary: Reports systems reviewed and no addt'l complaints, except as documented Neurologic Neurologic: Reports systems reviewed and no addt'l complaints, except as documented Psychiatric Psychiatric: Reports systems reviewed and no addt'l complaints, except as documented Endocrine Endocrinology: Reports systems reviewed and no addt'l complaints, except as documented Hematologic/Lymphatic Hematologic/Lymphatic: Reports systems reviewed and no addt'l complaints, except as documented Allergic/Immunologic Allergic/Immunologic: Reports systems reviewed and no addt'l complaints, except as documented Physical Exam Const alert and oriented x3 General Appearance: cooperative Orientation / Consciousness: awake, oriented to person, oriented to place and oriented to time Exam Limitations: no limitations HEENT normocephalic Head and Scalp: normal to inspection, normocephalic and atraumatic Face and Sinus: normal facial exam Eyes General Eye: normal appearance of both eyes Neck full ROM Chest Chest: symmetrical chest wall rise Resp normal respiratory effort and normal air movement Auscultation: clear to auscultation bilaterally Cardio regular rate, regular rhythm, S1 normal heart sound, S2 normal heart sound, no murmurs, no rub, no gallops and no clicks GI normal to inspection, nondistended, normoactive bowel sounds and non-tender appearance of the vagina normal Bladder / Kidney Exam: no CVA tenderness Back/Spine normal ROM Extremity normal to inspection and full ROM Skin no rashes or lesions noted Neuro oriented x3, CN's II-XII intact bilaterally and moves all extremities Sensorium / Orientation: awake, alert and oriented to person Motor Exam: clonus absent Deep Tendon Reflexes: Rt Patellar (L4): 2+ and Lt Patellar (L4): 2+ Assessment & Plan (1) Second degree perineal laceration: (2) Vaginal delivery: PLAN: Plan 1) PPD#1 2) Will get CBC today in the afternoon, asymptomatic 3) services 4) Pain management 5) Planning D/C home tomorrow
[2022-10-30] MEDS: Benzocaine/Lanolin/Aloe Vera 1 SPRAY EACH TOPICAL (08:48)
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
[2022-10-30] MEDS: Escitalopram Oxalate 10 MG Tablet 5 MG PO (10:33)
[2022-10-30 11:47] LABS: Hematocrit 32.5 % (37-47); Hemoglobin 9.8 g/dL (12.0-15.0); Mean Corp Hgb Conc 30.2 g/dL (32-36); Mean Corpuscular Hgb 25.5 pg (27.0-32.0); Mean Corpuscular Volume 84.4 fL (81-99); Mean Platelet Vol. 10.8 fl (6.2-12.0); POSITIVE MORPHOLOGY YES; Platelet Count 201 K/mm3 (150-450); RBC Distribution Width SD 64.2 fl (35.1-43.9); Red Blood Count 3.85 M/mm3 (4.2-5.4)
[2022-10-30 11:49] LABS: Scan Indicated on CBC? Y/N YES- FLAGS NOTED
[2022-10-30 12:43] LABS: Differential Comment SCANNED
[2022-10-31] VITALS (7 sets, daily range): BP systolic 104–115; BP diastolic 59–68; PULSE 80–90; RESP 16–18; TEMP 36.7–37.2; O2SAT 97–100
--- NOTE | 2022-10-31 09:40 | PN.OBGYN_ITS ---
Subjective Subjective Doing well per patient and nursing staff. Ambulating and taking PO without difficulty. Voiding and passing flatus. Pain controlled. , services for assistance. Denies headache, visual changes, chest pain, shortness of breath, leg pain or increased bleeding. Lochia normal. Objective Data Objective Data Vital Signs: Vital Signs Temp Pulse Resp BP Pulse Ox O2 Del Method 98.1 F 83 18 115/62 99 Room Air 10/31/22 08:26 10/31/22 08:26 10/31/22 08:26 10/31/22 08:26 10/31/22 08:26 10/31/22 08:26 Oxygen Delivery Method Room Air Weight: 170 lb Body Mass Index (BMI) 32.1 Intake & Output: Intake and Output for Last 24 Hours 10/29/22 10/30/22 10/31/22 23:59 23:59 23:59 Intake Total 3720.01 / 3720.01 747.62 / 747.62 Output Total 600 / 600 1450 / 1450 Balance 3120.01 / 3120.01 -702.38 / -702.38 Lab / Micro Data Result Diagrams: 10/30/22 11:10 Labs: Laboratory Results - last 24 hr 10/30/22 11:10: WBC 17.0 H, RBC 3.85 L, Hgb 9.8 L, Hct 32.5 L, MCV 84.4, MCH 25.5 L, MCHC 30.2 L, RDW Std Deviation 64.2 H, RDW Coeff of Evy 22.0 H, Plt Count 201, MPV 10.8, Differential Comment SCANNED ROS Constitutional Constitutional: Reports systems reviewed and no addt'l complaints, except as documented; Denies headache(s) Eyes Eyes: Denies acute decrease in peripheral vision, blurry vision or change in vision ENT HEENT: Reports systems reviewed and no addt'l complaints, except as documented Cardiovascular Cardiovascular: Denies chest pain or dizziness Respiratory/Chest Respiratory/Chest: Denies cough, dyspnea, dyspnea on exertion, shortness of glenn ath at rest or shortness of breath with exertion Gastrointestinal Gastrointestinal: Denies abdominal pain, diarrhea, nausea or vomiting Genitourinary Genitourinary: Denies abdominal discomfort Musculoskeletal Musculoskeletal: Denies limited range of motion Integumentary Integumentary: Reports systems reviewed and no addt'l complaints, except as documented Neurologic Neurologic: Reports systems reviewed and no addt'l complaints, except as documented Psychiatric Psychiatric: Reports systems reviewed and no addt'l complaints, except as documented Endocrine Endocrinology: Reports systems reviewed and no addt'l complaints, except as documented Hematologic/Lymphatic Hematologic/Lymphatic: Reports systems reviewed and no addt'l complaints, except as documented Allergic/Immunologic Allergic/Immunologic: Reports systems reviewed and no addt'l complaints, except as documented Physical Exam Const alert and oriented x3 General Appearance: cooperative Orientation / Consciousness: awake, oriented to person, oriented to place and oriented to time Exam Limitations: no limitations HEENT normocephalic Head and Scalp: normal to inspection, normocephalic and atraumatic Face and Sinus: normal facial exam Eyes General Eye: normal appearance of both eyes Neck full ROM Chest Chest: symmetrical chest wall rise Resp normal respiratory effort and normal air movement Auscultation: clear to auscultation bilaterally Cardio regular rate, regular rhythm, S1 normal heart sound, S2 normal heart sound, no murmurs, no rub, no gallops and no clicks GI normal to inspection, nondistended, normoactive bowel sounds and non-tender GI Narrative: fundus firm 2 below U appearance of the vagina normal Bladder / Kidney Exam: no CVA tenderness Back/Spine normal ROM Extremity normal to inspection and full ROM Skin no rashes or lesions noted Neuro oriented x3, CN's II-XII intact bilaterally and moves all extremities Sensorium / Orientation: awake, alert and oriented to person Motor Exam: clonus absent Deep Tendon Reflexes: Rt Patellar (L4): 2+ and Lt Patellar (L4): 2+ Assessment & Plan (1) Second degree perineal laceration: (2) Vaginal delivery: (3) Lactating mother: PLAN: Plan 1) PPD #2 with second degree perineal laceration 2) I&O 3) Vitals stable 4) Pain controlled 5) Declines LARC 6) D/C home 7) Follow up in 2 weeks and 6 weeks
--- NOTE | 2022-10-31 09:43 | PCM.DC.SUM ---
Providers Date of Admission: 10/29/22 Primary Care Physician: Sherly Roman, BRYAN-C Reason For Visit: VAGINAL DELIVERY Diagnosis Discharge Diagnosis (1) Second degree perineal laceration: Status: Acute Code(s): O70.1 - Second degree perineal laceration during delivery (2) Vaginal delivery: Status: Acute Code(s): O80 - Encounter for full-term uncomplicated delivery (3) Lactating mother: Status: Acute Code(s): Z39.1 - Encounter for care and examination of lactating mother Plan 1) PPD #2 with second degree perineal laceration 2) I&O 3) Vitals stable 4) Pain controlled 5) Declines LARC 6) D/C home 7) Follow up in 2 weeks and 6 weeks Medications at Discharge Home Medications escitalopram oxalate 5 mg tablet 5 mg PO DAILY seizures 04/16/22 acetaminophen 500 mg tablet 1,000 mg PO Q6H PRN PRN Pain 1-10 Or Fever #0 tabs 10/31/22 ibuprofen 600 mg tablet 600 mg PO Q6H PRN PRN Pain Score 1-10 #20 tabs 10/31/22 Weight / BMI Weight Weight: 170 lb Body Mass Index (BMI) 32.1 ABG / Lab / Microbiology Data Result Diagrams: 10/30/22 11:10 Laboratory: Laboratory Results - last 24 hr 10/30/22 11:10: WBC 17.0 H, RBC 3.85 L, Hgb 9.8 L, Hct 32.5 L, MCV 84.4, MCH 25.5 L, MCHC 30.2 L, RDW Std Deviation 64.2 H, RDW Coeff of Evy 22.0 H, Plt Count 201, MPV 10.8, Differential Comment SCANNED Meaningful Use Info Meaningful Use Diagnoses (Choose all that apply): None applicable Discharge Plan Admission Admit Date/Time: 10/29/22 06:55 Primary Reason for Your Visit: Vaginal Delivery, Second degree perineal laceration Attending Provider: Sherly Clark Primary Care Provider: Sherly Roman MAINTENANCE WORKER SWIMMING POOL Instructions Patient Instructions: [id number]: Holds, : Latch On Steps, After a Vaginal , Perineum Care After Childbirth Discharge Orders/Prescriptions Prescriptions: New acetaminophen 500 mg Tablet 1,000 mg PO Q6H PRN PRN (Reason: Pain 1-10 Or Fever) Qty: 0 0RF ibuprofen 600 mg Tablet 600 mg PO Q6H PRN PRN (Reason: Pain Score 1-10) Qty: 20 0RF Continued escitalopram oxalate 5 mg tablet 5 mg PO DAILY Referrals / Follow Up: Sherly Roman NP, MAINTENANCE WORKER SWIMMING POOL-C [Primary Care Provider] - Sherly Clark CNM [Med Staff - [facility] Practice Prof] - (Follow up in 2 weeks for virtual visit and 6 weeks in person visit) Disposition Disposition (needs filled in before D/C Order can be placed): Home, Self Care
[2022-10-31] MEDS: Escitalopram Oxalate 10 MG Tablet 5 MG PO (10:08)
== END 2022-10-31 19:00 | disposition home or self-care (01) | DRG 807 ==
PROVIDERS: Admitting Provider Advanced Practice Midwife; PCP Nurse Practitioner Primary Care; Referring Provider Advanced Practice Midwife; Visit Provider Advanced Practice Midwife
DX: O99.344 Other mental disorders complicating childbirth (principal); Z37.0 Single live birth; F32.A Depression, unspecified; F41.9 Anxiety disorder, unspecified; O70.1 Second degree perineal laceration during delivery; Z3A.39 39 weeks gestation of pregnancy; Z79.899 Other long term (current) drug therapy; Z87.891 Personal history of nicotine dependence
CPT/HCPCS: 59025; 59050; 80307; 85025; 85027; 86780; 86850; 86900; 86901; 99221; J7120; A4216; G0378; J2405

== ENCOUNTER 2022-12-10 20:18 | Emergency (ER) | payer OTHER, BC, MEDICAID, SELFPAY ==
[2022-12-10 20:20] VITALS: BP 110/81; PULSE 77; RESP 16; TEMP 37; O2SAT 100
[2022-12-10 21:03] LABS: Absolute Lymphocyte Count 4.04 X10^3/uL (0.83-4.51); Absolute Neutrophil Count 6.5 X10^3/uL (2.0-7.7); Basophil# 0.04 X10^3/uL; Basophil% 0.3 % (0-1); Eosinophil# 0.24 X10^3/uL; Eosinophils% 2.1 % (0-5); Hematocrit 40.5 % (37-47); Hemoglobin 12.6 g/dL (12.0-15.0); Lymphocyte # 4.04 X10^3/ul (0.83-4.51); Lymphocyte % 35.2 % (19-41); Mean Corp Hgb Conc 31.1 g/dL (32-36); Mean Corpuscular Hgb 25.6 pg (27.0-32.0); Mean Corpuscular Volume 82.3 fL (81-99); Mean Platelet Vol. 10.1 fl (6.2-12.0); Monocyte# 0.65 X10^3/uL; Monocyte% 5.7 % (0-10); NRBC Flagged by Analyzer 0 % (0-5); Neutrophil # 6.45 X10^3/uL (2.7-7.7); Neutrophil % 56.3 % (47-70); Platelet Count 240 K/mm3 (150-450); RBC Distribution Width CV 19.9 % (11.6-14.6); RBC Distribution Width SD 58.7 fl (35.1-43.9); Red Blood Count 4.92 M/mm3 (4.2-5.4); White Blood Count 11.5 K/mm3 (4.4-11.0)
[2022-12-10 21:12] LABS: Internal QC Validated? YES +Cl - CLEAR BKGD; Pregnancy, Serum, hCG Quali. NEGATIVE Negative
--- NOTE | 2022-12-10 21:13 | EDS_ITS ---
HPI HPI - Female History of Present Illness Chief Complaint: Vag Bleeding Bleeding Issue: Positive for Vaginal bleeding Onset: Today Context: Sudden Onset Timing: Continuous Current Severity: Similar to period Maximum Severity: Similar to period Associated Symptoms Associated Symptoms: Positive for Frequency Narrative Narrative: Patient presents with vaginal bleeding that began today. Patient states she is approximately 6 weeks . Patient states that her bleeding is similar to menstrual period except that it is thinner and more watery. Patient admits to some urinary frequency. Patient denies any dysuria. Patient denies any abdominal pain or pelvic pain. Patient also complains of a tender bump on her right forearm where she had an IV placed for her delivery. Patient denies any redness or swelling over the area. Patient denies any fevers or chills. Patient denies any discharge or drainage. Patient denies any paresthesias or weakness. PFSH PFSH Medical History Anemia Anxiety Depression Family history of hearing loss at age younger than 7 years Seizures Trauma Home Medications escitalopram oxalate 5 mg tablet 5 mg PO DAILY seizures 04/16/22 [History Last Taken 10/22/22 06:00] acetaminophen 500 mg tablet 1,000 mg PO Q6H PRN PRN Pain 1-10 Or Fever #0 tabs 10/31/22 [Rx Last Taken Unknown] ibuprofen 600 mg tablet 600 mg PO Q6H PRN PRN Pain Score 1-10 #20 tabs 10/31/22 [Rx Last Taken Unknown] Allergy/AdvReac Type Severity Reaction Status Date / Time No Known Allergies Allergy Verified 12/10/22 20:18 Surgical History no surgical history no surgical history Social History Smoking Status: Former smoker ROS ROS ED Constitutional Constitutional ED: Denies chills or fever(s) Eyes Eyes: Denies blurry vision or change in vision ENT ENT ED: Denies rhinorrhea or sore throat Cardiovascular Cardiovascular: Denies chest pain or palpitations Respiratory/Chest Respiratory/Chest: Denies cough or dyspnea Gastrointestinal Gastrointestinal: Denies nausea or vomiting Genitourinary Genitourinary ED: Reports urinary frequency; Denies dysuria Musculoskeletal Musculoskeletal: Denies back pain or neck pain Integumentary Denies abscess or rash Neurologic Neurologic: Denies headache(s) or weakness Allergic/Immunologic Allergic/Immunologic ED: Denies mouth swelling or urticaria EXAM Physical Exam Const Vital Signs: 12/10/22 20:20 Temperature 98.6 F Temperature Source Temporal Pulse Rate 77 Respiratory Rate 16 Blood Pressure 110/81 H Blood Pressure Mean 90 Pulse Ox 100 Oxygen Delivery Method Room Air Positive well nourished and well developed General Appearance ED: well developed HEENT Reports moist mucous membranes Neck supple and no JVD Resp normal respiratory effort and clear to auscultation bilaterally Cardio regular rate and regular rhythm GI normal to inspection, nondistended, normoactive bowel sounds and non-tender Palpation: soft Extremity normal to inspection Extremity Narrative: There is some mild tenderness over the volar aspect of the left proximal forearm. There is no erythema or warmth. There is some mild ecchymosis. There is full range of motion. There is no edema noted. Strength is 5/5 bilateral in the upper extremities. There are no sensory deficits noted. Radial pulses are equal bilaterally. General Extremety ED: Negative for edema or tenderness General Extremity: Negative for edema Neuro oriented x3, CN's II-XII intact bilaterally and no sensory deficits noted Sensorium / Orientation: alert Motor Exam: strength 5/5 throughout Psych mental status grossly normal Skin no rashes or lesions noted MDM MDM MDM Narrative Medical decision making narrative: Patient was advised that her forearm is most likely from a superficial p hlebitis. Patient was instructed use warm compresses to that area. Differential diagnosis includes vaginal bleeding, anemia, ectopic , and normal menstrual period. CBC will be obtained to assess for anemia and leukocytosis. Basic metabolic profile will be obtained to assess for electrolyte abnormality and renal function. PT with INR and PTT will be obtained to assess for coagulopathy. Serum hCG will be obtained to assess for status. Since it has been 6 weeks since she delivered, I do not believe that her bleeding is from any retained products of conception. Lab Data Attestation: I reviewed the patient's lab results. Lab results narrative: CBC was reviewed. There is a slight leukocytosis of 11.5. Hemoglobin was 12.6 hematocrit was 40.5. Platelets were normal. PT with INR and PTT were within normal limits. Basic metabolic profile was reviewed. BUN was slightly increased at 20. The remainder was essentially within normal limits. Serum hCG was reviewed and was negative. Labs: Laboratory Results - last 24 hr 12/10/22 12/10/22 12/10/22 20:56 20:56 20:56 WBC 11.5 H RBC 4.92 Hgb 12.6 Hct 40.5 MCV 82.3 MCH 25.6 L MCHC 31.1 L RDW Std Deviation 58.7 H RDW Coeff of Evy 19.9 H Plt Count 240 MPV 10.1 Immature Gran % (Auto) 0.400 Neut % (Auto) 56.3 Lymph % (Auto) 35.2 [place] % (Auto) 5.7 Eos % (Auto) 2.1 Baso % (Auto) 0.3 Absolute Neuts (auto) 6.5 Absolute Lymphs (auto) 4.04 Nucleated RBC % 0 PT 13.0 INR 1.0 APTT 27.6 Sodium 143 Potassium 4.0 Chloride 109 H Carbon Dioxide 29.0 Anion Gap 5 BUN 20 H Creatinine 0.77 Est GFR (MDRD) Af Amer 121 Est GFR (MDRD) Non-Af 100 BUN/Creatinine Ratio 25.9 H Glucose 95 Calcium 9.4 Serum , Qual 12/10/22 20:56 WBC RBC Hgb Hct MCV MCH MCHC RDW Std Deviation RDW Coeff of Evy Plt Count MPV Immature Gran % (Auto) Neut % (Auto) Lymph % (Auto) [place] % (Auto) Eos % (Auto) Baso % (Auto) Absolute Neuts (auto) Absolute Lymphs (auto) Nucleated RBC % PT INR APTT Sodium Potassium Chloride Carbon Dioxide Anion Gap BUN Creatinine Est GFR (MDRD) Af Amer Est GFR (MDRD) Non-Af BUN/Creatinine Ratio Glucose Calcium Serum , Qual NEGATIVE Treatment and Re-Evaluation Narrative: Patient was advised of her findings. Patient was advised that this may be a resumption of her normal menstrual period. Patient was instructed to follow-up with her ROD AND TUBE STRAIGHTENER in 5 to 7 days. Patient understood and was agreeable with the plan. All questions were answered. Discharge Plan Triage Chief Complaint: Vag Bleeding ED Provider: Tim Pederson Dx/Rx/DC Orders Clinical Impression: Vaginal bleeding, Lactating mother, Phlebitis of superficial vein Instructions: ED Dysfunctional Uterine Bleeding Prescriptions: No Action escitalopram oxalate 5 mg tablet 5 mg PO DAILY acetaminophen 500 mg Tablet 1,000 mg PO Q6H PRN PRN (Reason: Pain 1-10 Or Fever) Qty: 0 0RF ibuprofen 600 mg Tablet 600 mg PO Q6H PRN PRN (Reason: Pain Score 1-10) Qty: 20 0RF Primary Care Provider: Sherly Roman NP Referrals: Sherly lCark CNM [Med Staff - [facility] Practice Prof] - 3-5 Days Sherly Roman NP, TIGHT BARREL INSPECTOR-C [Primary Care Provider] - 5-7 Days Disposition Disposition: Home, Self Care
[2022-12-10 21:14] LABS: Partial Thromboplast Time 27.6 Seconds (24.1-36.2)
[2022-12-10 21:17] LABS: BUN 20 mg/dL (7-18); BUN/Creat Ratio 25.9 RATIO (10-20); Calcium,Total 9.4 mg/dL (8.5-10.1); Creatinine, Serum 0.77 mg/dL (0.55-1.02); EST Glomerular Filtration Rate 100 mL/min (>60); Est Glom Filt Rate - Afr Amer 121 mL/min (>60); Glucose 95 mg/dL (74-106); Sodium Level 143 mmol/L (136-145)
[2022-12-10 21:18] LABS: Anion Gap 5 (5-15); Chloride 109 mmol/L (98-107)
[2022-12-10 21:31] VITALS: BMI 27.8
== END 2022-12-10 21:32 | disposition home or self-care (01) ==
PROVIDERS: Emergency Provider Emergency Medicine; PCP Nurse Practitioner Primary Care; Visit Provider Emergency Medicine
DX: N93.9 Abnormal uterine and vaginal bleeding, unspecified (principal); Z87.891 Personal history of nicotine dependence; R35.0 Frequency of micturition; I80.8 Phlebitis and thrombophlebitis of other sites
CPT/HCPCS: 80048; 84703; 85025; 85610; 85730; 99283; A4216

== ENCOUNTER 2023-11-19 10:06 | Emergency (ER) | payer MEDICAID, BC, SELFPAY ==
[2023-11-19 10:06] VITALS: BP 141/75; PULSE 103; RESP 18; TEMP 36.6; O2SAT 99
--- NOTE | 2023-11-19 10:38 | US_ITS ---
INDICATION: , bleeding EXAMINATION: Ultrasound US OB Transvaginal TECHNIQUE: Transvaginal (for optimal evaluation of the adnexa) pelvic ultrasound was performed. Grayscale, spectral waveform, and color flow Doppler evaluation of the adnexa. COMPARISON: No relevant prior comparison study available LMP: [October 11, 2023 FINDINGS: UTERUS: 8.6 x 4.5 x 6.3 cm. The endometrial stripe measures 15.7 mm. No gestational sac is visualized. RIGHT OVARY: 3.0 x 1.7 x 2.9 cm. Within normal limits. LEFT OVARY: 2.4 x 1.2 x 2.3 cm. Within normal limits. FREE FLUID: There is minimal free fluid which may be physiologic. US/Transvaginal w/Preg US IMPRESSION: No intrauterine identified. Electronically Signed: Kesha Melendez MD at 11:51 EDT ,
--- NOTE | 2023-11-19 10:39 | ED.VIS.FEGU ---
HPI HPI - Female History of Present Illness Chief Complaint: Vag Bld, Preg Detail of Chief Complaint: Vaginal bleeding with Informant: patient Narrative Narrative: Patient presents to the emergency department with complaint of vaginal bleeding that started this morning. She can planes of pelvic pain. Bleeding like a menstrual period would be. She denies passing clots. Patient thinks she is about 4 weeks . She is . Still nursing 2-year-old. Patient denies recent illness. She denies fevers PFSH PFSH Medical History Anemia Anxiety Depression Family history of hearing loss at age younger than 7 years Seizures Trauma Home Medications ?Medication ?Instructions ?Recorded ?Last Taken ?Type escitalopram oxalate 5 mg tablet 5 mg PO DAILY seizures 04/16/22 10/22/22 06:00 History acetaminophen 500 mg tablet 1,000 mg (2 x 500 mg) PO Q6H PRN 10/31/22 Unknown Rx PRN Pain 1-10 Or Fever #0 tabs ibuprofen 600 mg tablet 600 mg PO Q6H PRN PRN Pain Score 10/31/22 Unknown Rx 1-10 #20 tabs Allergy/AdvReac Type Severity Reaction Status Date / Time No Known Allergies Allergy Verified 11/19/23 10:07 Social History Smoking Status: Never smoker ROS ROS ED ROS Narrative Review of Systems ROS Unobtainable: other Constitutional Constitutional ED: Reports lethargy; Denies chills, fever(s), sweats or weight loss Eyes Eyes: Denies blurry vision, change in vision or diplopia ENT ENT ED: Denies rhinorrhea or sore throat Cardiovascular Cardiovascular: Reports chest pain and racing heartbeat; Denies orthopnea Respiratory/Chest Respiratory/Chest: Reports dyspnea and dyspnea on exertion; Denies cough, orthopnea or sputum Gastrointestinal Gastrointestinal: Denies abdominal pain, diarrhea, nausea or vomiting Genitourinary Genitourinary ED: Reports vaginal bleeding; Denies dysuria, hematuria or urinary frequency Musculoskeletal Musculoskeletal: Denies arthralgias, back pain, myalgias or neck pain Integumentary Denies abscess, Abrasions or rash Neurologic Neurologic: Denies headache(s) or weakness Psychiatric Psychiatric: Denies anxiety, depression or suicidal thoughts Endocrine Endocrinology: Denies polydipsia, polyphagia or polyuria Hematologic/Lymphatic Hematologic/Lymphatic: Denies easy bleeding, easy bruising or lymphadenopathy Allergic/Immunologic Allergic/Immunologic ED: Denies mouth swelling, tongue swelling or urticaria EXAM Physical Exam Const Vital Signs: 11/19/23 10:06 11/19/23 12:06 Temperature 98 F Temperature Source Temporal Pulse Rate 103 H 81 Respiratory Rate 18 16 Blood Pressure 141/75 H 125/83 H Blood Pressure Mean 97 97 Pulse Ox 99 99 Oxygen Delivery Method Room Air Room Air Positive well nourished and well developed General Appearance ED: well developed and NAD HEENT Reports TM's clear and moist mucous membranes normocephalic and atraumatic; Negative for trauma or tenderness Tympanic Membrane ED: Yes TM's clear Eyes PERRL and EOMs intact bilaterally General Eye ED: Negative for pale conjunctiva or scleral icterus Neck no lymphadenopathy, supple and no JVD General: Negative for tenderness Chest Wall inspection of chest normal and palpation of chest normal Chest: Negative for tenderness Resp normal respiratory effort and clear to auscultation bilaterally Effort and Inspection: Negative for respiratory distress or pain with movement Auscultation: Negative for rhonchi, wheezes or diminished lung sounds Cardio regular rate, regular rhythm, S1 normal heart sound, S2 normal heart sound and no murmurs Peripheral Pulses: pulses 2+ throughout GI normal to inspection, nondistended, normoactive bowel sounds, soft to palpation, non-tender, non-distended and no masses Speculum Exam - Vagina: vaginal bleeding Back/Spine no CVA tenderness and no thoracic nor lumbar tenderness Extremity normal to inspection General Extremety ED: Negative for edema General Extremity: Negative for edema Neuro oriented x3, CN's II-XII intact bilaterally, no sensory deficits noted and gait normal Sensorium / Orientation: awake, alert, oriented to person, oriented to place and oriented to time Motor Exam: strength 5/5 throughout and strength abnormal Psych mental status grossly normal Skin no rashes or lesions noted and no wounds MDM MDM MDM Narrative Medical decision making narrative: Patient presents with first trimester bleeding. Think she might be about 4 weeks . She complaining of some lower pelvic pain. IV line established. CBC with differential count of 8.4 with hemoglobin 12.7 platelet count of 283. hCG quant was 664. Urinalysis was positive for 25-50 RBCs and 10-25 WBCs and +2 bacteria. Urine culture was sent. Patient had a pelvic ultrasound that did not show any intrauterine or significant abnormality. She had mild amount of free fluid in the pelvis which could be physiologic. This point we will discuss case with PLANT ENGINEERING MANAGER on-call for her group. Patient will likely require repeat quant in 2 days and close follow-up. Spoke with Sherly Eduardo asked that patient follow-up with their office tomorrow and they will get her set up to have repeat quant and repeat ultrasound. Patient will be discharged home with advised to return if worsening pain persistent heavy bleeding, lightheadedness, or condition should worsen anyway. Lab Data Labs: Laboratory Results - last 24 hr 11/19/23 11/19/23 10:30 11:15 WBC 8.4 RBC 4.76 Hgb 12.7 Hct 38.8 MCV 81.5 MCH 26.7 L MCHC 32.7 RDW Std Deviation 41.9 RDW Coeff of Evy 14.2 Plt Count 283 MPV 10.7 Immature Gran % (Auto) 0.500 Neut % (Auto) 59.6 Lymph % (Auto) 32.3 [place] % (Auto) 4.5 Eos % (Auto) 2.6 Baso % (Auto) 0.5 Absolute Neuts (auto) 5.0 Absolute Lymphs (auto) 2.72 Nucleated RBC % 0 HCG, Quant 664 H Urine Color Yellow Urine Clarity Sl. Cloudy Urine pH 5.0 Ur Specific [place] 1.025 Urine Protein 30 H Urine Glucose (UA) Normal Urine Ketones 5 H Urine Occult Blood 250 H Urine Nitrite Negative Urine Bilirubin Negative Urine Urobilinogen Normal Ur Leukocyte Esterase 100 H Urine RBC 25-50 SEEN Urine WBC 10-25 SEEN Ur Squamous Epith Cells 0-5 SEEN Urine Bacteria 2+ Urine Mucus 2+ Radiography Diagnostic Testing: Clinical Impression(s) from Imaging Studies Obstetrics Ultrasound 11/19/23 10:38 IMPRESSION: No intrauterine identified. Electronically Signed: Kesha Melendez MD at 11:51 EDT , Discharge Plan Triage Chief Complaint: Vag Bld, Preg ED Provider: Ajit Castaneda Dx/Rx/DC Orders Clinical Impression: Threatened in early Instructions: Miscarriage Threatened Prescriptions: No Action escitalopram oxalate 5 mg tablet 5 mg PO DAILY acetaminophen 500 mg Tablet 1,000 mg PO Q6H PRN PRN (Reason: Pain 1-10 Or Fever) Qty: 0 0RF ibuprofen 600 mg Tablet 600 mg PO Q6H PRN PRN (Reason: Pain Score 1-10) Qty: 20 0RF Primary Care Provider: Sherly Roman NP Referrals: Sherly Clark CNM [Med Staff - Adv Practice Prof] - 1 Day Sherly Roman NP, C2 TACTICAL ANALYSIS TECHNICIAN-C [Primary Care Provider] - Activity Restrictions/Additional Instructions: Call the PLANT ENGINEERING MANAGER office tomorrow to have repeat quant level ordered and arrange close follow-up Print Language: Vincentian Disposition Disposition: Home, Self Care
--- NOTE | 2023-11-19 10:40 | ED.RN ---
pt previous bloodwork confirms blood type is AB+, dr liz aware. blood type labs cancelled
[2023-11-19] MEDS: 0.9% Normal Saline (1000mL) 1,000 ML 999 ML IV (10:45)
[2023-11-19 11:10] LABS: hCG Titer Quant., Serum 664 mIU/mL (1-3)
[2023-11-19 11:13] LABS: Absolute Lymphocyte Count 2.72 X10^3/uL (0.83-4.51); Basophil# 0.04 X10^3/uL; Basophil% 0.5 % (0-1); Eosinophil# 0.22 X10^3/uL; Eosinophils% 2.6 % (0-5); Hematocrit 38.8 % (37-47); Hemoglobin 12.7 g/dL (12.0-15.0); Lymphocyte # 2.72 X10^3/ul (0.83-4.51); Lymphocyte % 32.3 % (19-41); Mean Corp Hgb Conc 32.7 g/dL (32-36); Mean Corpuscular Hgb 26.7 pg (27.0-32.0); Mean Corpuscular Volume 81.5 fL (81-99); Mean Platelet Vol. 10.7 fl (6.2-12.0); Monocyte# 0.38 X10^3/uL; Monocyte% 4.5 % (0-10); NRBC Flagged by Analyzer 0 % (0-5); Neutrophil # 5.02 X10^3/uL (2.7-7.7); Neutrophil % 59.6 % (47-70); Platelet Count 283 K/mm3 (150-450); RBC Distribution Width CV 14.2 % (11.6-14.6); RBC Distribution Width SD 41.9 fl (35.1-43.9); Red Blood Count 4.76 M/mm3 (4.2-5.4); White Blood Count 8.4 K/mm3 (4.4-11.0)
[2023-11-19 11:27] LABS: Color, Urine Yellow (Yellow); Glucose, Dipstick Normal (Normal); Ketone-Dipstick 5 mg/dl (Negative); Leukocyte Esterase-Dipstick 100 /ul (Negative); Nitrite-Dipstick Negative (Negative); Occult Blood-Urine 250 /ul (Negative); Protein-Dipstick 30 mg/dl (Negative); Specific Gravity, Urine 1.025 (1.002-1.030); Urine Bilirubin Dipstick Negative (Negative); Urine Clarity Sl. Cloudy (Clear); Urine Urobilinogen Normal (Normal)
[2023-11-19 11:37] LABS: Bacteria 2+ /hpf (None Seen); Mucous, Urine 2+ /hpf (<or=2+); Red Blood Cells-Urine 25-50 SEEN /hpf (0-5); Squamous Epithelial Cells - UA 0-5 SEEN /hpf (5-10); White Blood Cells 10-25 SEEN /hpf (0-5)
[2023-11-19 12:06] VITALS: BP 125/83; PULSE 81; RESP 16; O2SAT 99
[2023-11-19 13:04] VITALS: BP 124/71; PULSE 87; RESP 16; TEMP 36.2; O2SAT 100
== END 2023-11-19 13:08 | disposition home or self-care (01) ==
PROVIDERS: Emergency Provider Emergency Medicine; PCP Nurse Practitioner Primary Care; Visit Provider Emergency Medicine
DX: O20.0 Threatened abortion (principal); Z3A.01 Less than 8 weeks gestation of pregnancy
CPT/HCPCS: 76817; 81001; 84702; 85025; 87086; 87088; 87186; 96360; 96361; 99284; J7030; A4216

== ENCOUNTER 2023-12-21 15:47 | Emergency (ER) | payer BC, MEDICAID, SELFPAY ==
[2023-12-21 15:48] VITALS: BP 114/62; PULSE 90; RESP 17; TEMP 36.4; O2SAT 95
[2023-12-21 15:49] VITALS: BP 114/62; PULSE 90; RESP 17; TEMP 36.4; O2SAT 95
--- NOTE | 2023-12-21 16:10 | ED.RN ---
I will just come back tomorrow and get my shot Pt did not want to wait in ER waiting room, will return tomorrow.
== END 2023-12-21 16:06 | disposition left against medical advice (07) ==
LOC: ED 16:12
PROVIDERS: PCP Nurse Practitioner Primary Care
DX: Z53.21 Procedure and treatment not carried out due to patient leaving prior to being seen by health care provider (principal)
CPT/HCPCS: 99283

== ENCOUNTER 2024-02-22 11:46 | Emergency (ER) | payer BC, MEDICAID, SELFPAY ==
[2024-02-22] VITALS (7 sets, daily range): BP systolic 97–121; BP diastolic 63–102; PULSE 60–71; RESP 12–16; TEMP 36.1–36.6; O2SAT 95–99; BMI 26.4
--- NOTE | 2024-02-22 12:00 | US_ITS ---
STUDY: FIRST TRIMESTER OBSTETRICAL ULTRASOUND REASON FOR EXAM: Female, 23 years old pelvic pain, bleeding -- 8-9 weeks by dates, r/o ectopic LMP: December 22, 2023. TECHNIQUE: Transvaginal TECHNICAL QUALITY: Adequate. PRIOR ULTRASOUND: None. FINDINGS: There is no demonstrated intrauterine gestational sac. There is no demonstrated yolk sac. The yolk sac measures . The placenta is non-visualized. There is no demonstrated embryo ( pole). The uterus measures 9.2 cm x 5.6 cm x 4.8 cm. There is no demonstrated uterine fibroid. The cervix is closed. The endometrial measures 1.1 cm. It is heterogeneous. The right ovary measures 2.1 cm x 1.9 cm by 1.1 cm. There is no right ovarian cyst. There is no visualized right adnexal mass or complex lesion. The left ovary measures 3 cm x 2.9 cm x 1.7 cm. There is no left ovarian cyst. There is no visualized left adnexal mass or complex lesion. There is no fluid in the cul de sac. US/Transvaginal w/Preg US IMPRESSION: No intrauterine gestational sac is seen. The endometrium measures 1.1 cm. Serial beta hCG follow up recommended. Electronically Signed: Joao Carter MD at 14:17 EDT ,
--- NOTE | 2024-02-22 12:02 | ED.VIS.FEGU ---
HPI HPI - Female History of Present Illness Chief Complaint: Vag Bld, Preg Informant: patient Narrative Narrative: TTP one 8 to 9-week gestation by dates presents for vaginal bleeding with clots for last 2 days. She initially saw her OB team when she was 5 weeks , she saw Sherly Moreno, she states she has not followed up since then. She is too early for an ultrasound. She has been on prenatals. Started having bleeding 3 days ago however last 2 days clots. She went through 40 pack of pads in the last 2 days. She went through 3 soaked pads today. Denies lightheaded symptoms. Increasing pelvic cramping. She is not on any blood thinners. She denies sexual intercourse prior to bleeding. She denies trauma. She states she does have pain in her pelvis when she urinates. Denies dysuria. She discussed with nursing line through her OB office, was sent to the ED for evaluation. Prior similar symptoms: No PFSH PFSH Medical History Family history of hearing loss at age younger than 7 years Trauma Anemia Anxiety Depression Seizures Home Medications ?Medication ?Instructions ?Recorded ?Last Taken ?Type escitalopram oxalate 5 mg tablet 5 mg PO DAILY seizures 04/16/22 10/22/22 06:00 History acetaminophen 500 mg tablet 1,000 mg (2 x 500 mg) PO Q6H PRN 10/31/22 Unknown Rx PRN Pain 1-10 Or Fever #0 tabs ibuprofen 600 mg tablet 600 mg PO Q6H PRN PRN Pain Score 10/31/22 Unknown Rx 1-10 #20 tabs nitrofurantoin 100 mg PO Q12 #10 CAPSULES 02/22/24 Unknown Rx monohydrate/macrocrystals 100 mg capsule Allergy/AdvReac Type Severity Reaction Status Date / Time No Known Allergies Allergy Verified 02/22/24 11:46 Family History no significant family his Social History Smoking Status: Never smoker ROS ROS ED Constitutional Constitutional ED: Denies chills, fever(s) or sweats Eyes Eyes: Denies change in vision ENT ENT ED: Denies dysphagia or sore throat Cardiovascular Cardiovascular: Denies chest pain, leg edema, palpitations or racing heartbeat Respiratory/Chest Respiratory/Chest: Denies cough, dyspnea or dyspnea on exertion Gastrointestinal Gastrointestinal: Denies abdominal pain, diarrhea, nausea or vomiting Genitourinary Genitourinary ED: Reports other Details: Vaginal bleeding, pelvic pain ; Denies dysuria, hematuria or urinary frequency Musculoskeletal Musculoskeletal: Denies back pain, extremity pain or neck pain Integumentary Denies rash or wounds Neurologic Neurologic: Denies headache(s), paresthesias or weakness EXAM Physical Exam Const Vital Signs: 02/22/24 11:47 02/22/24 12:46 02/22/24 12:59 Temperature 96.9 F L Temperature Source Temporal Pulse Rate 71 60 60 Respiratory Rate 16 16 16 Blood Pressure 109/81 H 121/102 H 121/102 H Blood Pressure Mean 90 108 108 Pulse Ox 98 99 99 Oxygen Delivery Method Room Air Room Air 02/22/24 13:57 02/22/24 15:00 02/22/24 16:00 Temperature Temperature Source Pulse Rate 63 63 61 Respiratory Rate 16 16 12 Blood Pressure 101/64 112/80 99/69 Blood Pressure Mean 76 90 79 Pulse Ox 99 99 95 Oxygen Delivery Method Room Air Room Air Room Air 02/22/24 16:33 Temperature 98 F Temperature Source Pulse Rate 68 Respiratory Rate 14 Blood Pressure 97/63 Blood Pressure Mean 74 Pulse Ox 98 Oxygen Delivery Method Positive well nourished and well developed General Appearance ED: well developed and NAD HEENT Reports moist mucous membranes normocephalic and atraumatic Eyes EOMs intact bilaterally and conjunctivae normal General Eye ED: Yes normal appearance of both eyes; Negative for pale conjunctiva Neck no lymphadenopathy and supple General: Negative for tenderness Chest Wall Chest: Negative for tenderness Resp normal respiratory effort and normal air movement Effort and Inspection: symmetric chest movement; Negative for respiratory distress Cardio regular rate, regular rhythm and no murmurs Peripheral Pulses: pulses 2+ throughout GI normal to inspection, nondistended, normoactive bowel sounds and non-tender Palpation: Negative for guarding or rebound tenderness present Narrative: Suprapubic tenderness there is no guarding or rebound. Back/Spine no CVA tenderness and no thoracic nor lumbar tenderness Extremity normal to inspection General Extremety ED: Negative for edema or tenderness General Extremity: Negative for edema Neuro oriented x3 and no sensory deficits noted Sensorium / Orientation: awake and alert Skin no rashes or lesions noted and no wounds MDM MDM MDM Narrative Medical decision making narrative: Interventions / MDM: Differential diagnosis: Incomplete miscarriage, threatened miscarriage, ectopic , complete miscarriage, UTI Diagnosis considered but do not suspect: N/A My EKG interpretation: N/A Imaging independently reviewed and interpreted by myself: Transvaginal ultrasound: No intrauterine no ovarian cysts. External documents reviewed: Blood type AB+. Test considered but not ordered:N/A ED course: Increasing vaginal bleeding, pelvic pain with clots. Likely miscarriage however she has not had an official ultrasound for ectopic on the differential. Patient blood type in the system may be positive. Will check H&H, hCG quant levels. Urine. Will establish IV with n.p.o. status. Ultrasound ordered for further evaluation. 1500: Ultrasound was negative for any findings of intrauterine sac or any ovarian cyst. Her hCG was 525. However reviewing records she had hCG of 600, 3 months ago. This would not correlate with her reported 8 to 9 weeks gestation by history. I discussed this with further no significant other she had a miscarriage back in November. He stated she follow-up outpatient had quant levels that went down to 0. This is not in records. She is having increasing cramping no bleeding she is ordered for morphine. Her urine did note nitrites and leukocytes. Will plan treatment with antibiotics. However with 1 lab today at 525, differential would be complete miscarriage versus early bleeding in possible still ectopic with her pain. History more likely with complete miscarriage. I will speak with her OB team for discussion and plan of care. 1610: I spoke with Dr. Garcia, agrees likely complete miscarriage. Discussed possibility of early with vaginal bleeding. She states less than 12 weeks RhoGAM is not being used currently. Discussed her treatment for UTI. Patient will call the office for repeat hCG in 2 days. This was discussed with the patient. Patient will use Tylenol as needed. She is comfortable on reevaluation. Re-evaluation: stable Disposition discussed with patient/family/significant other: Patient and significant other Case discussed with consulting clinician: OB This note was generated with [employer] dictation software. It may contain incorrect words, spelling, and punctuation that were not noted in checking the note before signing. Lab Data Attestation: I reviewed the patient's lab results. Labs: Laboratory Results - last 24 hr 02/22/24 02/22/24 12:10 12:32 Hgb 11.9 L Hct 37.7 HCG, Quant 525 H Urine Color Yellow Urine Clarity Sl. Cloudy Urine pH 6.0 Ur Specific [place] 1.025 Urine Protein 100 H Urine Glucose (UA) Normal Urine Ketones 5 H Urine Occult Blood 250 H Urine Nitrite Positive H Urine Bilirubin Negative Urine Urobilinogen 1 H Ur Leukocyte Esterase 25 H Urine RBC 25-50 SEEN Urine WBC 0-5 SEEN Ur Squamous Epith Cells 0-5 SEEN Urine Bacteria 1+ Urine Mucus 1+ Radiography Diagnostic Testing: Clinical Impression(s) from Imaging Studies Obstetrics Ultrasound 02/22/24 12:00 IMPRESSION: No intrauterine gestational sac is seen. The endometrium measures 1.1 cm. Serial beta hCG follow up recommended. Electronically Signed: Joao Carter MD at 14:17 EDT , Discharge Plan Triage Chief Complaint: Vag Bld, Preg ED Provider: Vern Burns Dx/Rx/DC Orders Clinical Impression: Complete miscarriage, Vaginal bleeding, Pelvic pain, UTI in Instructions: Urinary Tract Infections in Women, Miscarriage Dc Prescriptions: New nitrofurantoin monohyd/m-cryst 100 mg capsule 100 mg PO Q12 Qty: 10 0RF No Action escitalopram oxalate 5 mg tablet 5 mg PO DAILY acetaminophen 500 mg Tablet 1,000 mg PO Q6H PRN PRN (Reason: Pain 1-10 Or Fever) Qty: 0 0RF ibuprofen 600 mg Tablet 600 mg PO Q6H PRN PRN (Reason: Pain Score 1-10) Qty: 20 0RF Stand Alone Forms: ED Work / School Excuse Primary Care Provider: Sherly Roman NP Referrals: Wandy Jimenez MD [Med Staff - Active Staff] - 2 Days Sherly Roman NP, [id number] [Primary Care Provider] - Activity Restrictions/Additional Instructions: Urine hCG is 525 today. With your history likely complete miscarriage however you will need repeat hCG level in [address]iscussed this with Dr. Garcia. Call office so they can order this in 2 days. Use Tylenol as needed. Take antibiotic as prescribed for urinary tract infection. Print Language: Mexican Disposition Disposition: Home, Self Care Discharge Date/Time: 02/22/24 16:38
[2024-02-22 12:26] LABS: Hematocrit 37.7 % (37-47); Hemoglobin 11.9 g/dL (12.0-15.0)
[2024-02-22] MEDS: 0.9% Normal Saline (1000mL) 1,000 ML 150 ML IV (12:29)
[2024-02-22 12:36] LABS: Color, Urine Yellow (Yellow); Glucose, Dipstick Normal (Normal); Ketone-Dipstick 5 mg/dl (Negative); Leukocyte Esterase-Dipstick 25 /ul (Negative); Nitrite-Dipstick Positive (Negative); Occult Blood-Urine 250 /ul (Negative); Protein-Dipstick 100 mg/dl (Negative); Specific Gravity, Urine 1.025 (1.002-1.030); Urine Bilirubin Dipstick Negative (Negative); Urine Clarity Sl. Cloudy (Clear); Urine Urobilinogen 1 mg/dl (Normal)
[2024-02-22 12:41] LABS: hCG Titer Quant., Serum 525 mIU/mL (1-3)
[2024-02-22 12:51] LABS: Bacteria 1+ /hpf (None Seen); Mucous, Urine 1+ /hpf (<or=2+); Red Blood Cells-Urine 25-50 SEEN /hpf (0-5); Squamous Epithelial Cells - UA 0-5 SEEN /hpf (5-10)
[2024-02-22 12:52] LABS: White Blood Cells 0-5 SEEN /hpf (0-5)
[2024-02-22] MEDS: Ondansetron 4 MG/2 ML Vial IV (14:48)
[2024-02-22] MEDS: Morphine 4 MG/ML Syringe IV (14:50)
--- NOTE | 2024-02-22 15:09 | ED.RN ---
PT CALLED THIS RN TO BATHROOM, THIS RN OBSERVED 2 QUARTER SIZED RED CLOTS IN TOILET.
[2024-02-22] MEDS: Nitrofurantoin Macrocrystals 100 MG Capsule PO (16:26)
== END 2024-02-22 16:38 | disposition home or self-care (01) ==
PROVIDERS: Emergency Provider Emergency Medicine; PCP Nurse Practitioner Primary Care; Visit Provider Emergency Medicine
DX: O03.9 Complete or unspecified spontaneous abortion without complication (principal); O26.891 Other specified pregnancy related conditions, first trimester; Z3A.00 Weeks of gestation of pregnancy not specified; R10.2 Pelvic and perineal pain; O23.41 Unspecified infection of urinary tract in pregnancy, first trimester
CPT/HCPCS: 76817; 81001; 84702; 85014; 85018; 96361; 96374; 96375; 99284; J7030; A4216; J2405